=== PATIENT | male | born 1950 | race Caucasian/White ===

== ENCOUNTER 2024-12-13 12:23 | Outpatient (CLI) | payer OTHER | END 2024-12-13 12:35 | disposition home or self-care (01) | LOC: SONOGRAMA 12:23 | PROVIDERS: ATTEND Internal Medicine Gastroenterology | DX: R10.13 Epigastric pain (principal) ==

== ENCOUNTER → 2025-06-28 | Outpatient (CLI) | payer OTHER | END | disposition home or self-care (01) | LOC: SONOGRAMA 13:32 | PROVIDERS: ATTEND Urology | DX: R31.1 Benign essential microscopic hematuria (principal); N20.0 Calculus of kidney ==